=== PATIENT | female | born 1995 | race Caucasian/White ===

== ENCOUNTER 2019-09-05 21:37 | Emergency (ER) | payer OTHER, MEDICAID, SELFPAY ==
[2019-09-05 21:44] VITALS: BP 139/99; PULSE 104; RESP 22; TEMP 36.7; O2SAT 99
[2019-09-05] MEDS: ONDANSETRON 4 MG ODT PREPACK 1 BOTTLE MISC (21:49)
[2019-09-05] MEDS: MAG HYDROX/ALUMINUM/SIMETH SUS 20 ML, LIDOCAINE VISCOUS 2% 15 ML PO (22:07)
[2019-09-05 22:41] VITALS: PULSE 81; RESP 18; O2SAT 99
--- NOTE | 2019-09-06 00:08 | ED_ITS ---
HPI - Nausea/Vomiting/Diarrhea General Chief complaint: Nausea/Vomiting/Diarrhea Stated complaint: vomiting Time Seen by Provider: 09/05/19 21:45 Source: patient Mode of arrival: Ambulatory Limitations: no limitations History of Present Illness HPI Narrative: 24F non smoker with history of UTIs presents with nausea and vomiting after taking a dose of Bactrim this evening after being recently diagnosed with the UTI. She had forgotten to tell her doctor that she had been intolerant of Bactrim once before. She has had a few days of burning, frequency, and urgency and saw here PCP whom diagnosed UTI. She's had no fever, chills, or back pain. She has had N/V as stated, but is not dizzy, weak, or lightheaded. She has no swelling of tongue, lips, or throat and no trouble breathing. She denies any exposure to persons with known or suspected COVID 19. MD complaint: nausea and vomiting Onset (ago): hour(s) Description of Vomiting: food contents Description of Diarrhea: none Associated Abdominal Pain: No Severity: mild Relieving factors: none Exacerbating factors: none Associated symptoms: denies other symptoms Related Data Previous Rx's Medication Instructions Recorded ciprofloxacin HCl 500 mg PO BID 5 Days #10 tab 09/05/19 ondansetron 4 mg PO Q6H PRN #10 tab 09/05/19 nitrofurantoin macrocrystal 50 mg PO QID 7 Days #28 cap 09/06/19 Review of Systems Constitutional Constitutional: Denies chills, Denies fatigue, Denies fever(s), Denies frequent falls, Denies lethargy and Denies weakness Eyes Eyes: Denies change in vision, Denies eye discharge, Denies irritation and Denies loss of vision ENT Ears, Nose, Mouth, and Throat: Denies change in voice, Denies dizziness, Denies neck pain, Denies sore throat and Denies throat swelling Cardiovascular Cardiovascular: Denies chest pain, Denies irregular heart rhythm, Denies lightheadedness, Denies palpitations, Denies dyspnea, Denies dyspnea on exertion and Denies orthopnea Respiratory Respiratory: Denies cough, Denies dyspnea, Denies dyspnea on exertion and Denies wheezing Gastrointestinal Gastrointestinal: Denies abdominal pain, Denies change in bowel habits, Denies diarrhea, Reports nausea and Reports vomiting Genitourinary Genitourinary: Denies hematuria, Denies flank pain, Denies urinary incontinence and Denies urinary urgency Musculoskeletal Musculoskeletal: Denies back pain, Denies muscle weakness, Denies neck pain, Denies numbness and Denies tingling Integumentary/Breasts Skin/Breast: Denies pruritus, Denies erythema, Denies rash and Denies wounds Neurologic Neurologic: Denies behavioral changes, Denies confusion, Denies dizziness, Denies frequent falls, Denies loss of vision, Denies numbness, Denies tingling and Denies weakness Psychiatric Psychiatric: Denies anxiety, Denies behavioral changes, Denies confusion, Denies depression, Denies homicidal ideation and Denies suicidal ideation Endocrine Endocrine: Denies fatigue, Denies flushing and Denies palpitations Hematologic/Lymphatic Hematologic/Lymphatic: Denies easy bruising Allergic/Immunologic Allergic/Immunologic: Denies urticaria, Denies throat swelling and Denies wheezing Patient History Smoking Status: Never smoker Exam Narrative Exam Narrative: GENERAL: [24] year old patient appears stated age. Well- nourished, well-developed patient, in mild distress. Anxious HEAD: Atraumatic. Normocephalic. EYES: Pupils equal round and reactive. Extraocular motions intact. No scleral icterus. No injection or drainage. ENT: Nose without bleeding, purulent drainage. Throat without erythema, tonsillar hypertrophy or exudate. Airway patent. NECK: Trachea midline. Non tender CARDIOVASCULAR: Tachycardic but regular rhythm without murmurs, gallops, or rubs. RESPIRATORY: Clear to auscultation. Breath sounds equal bilaterally. No wheezes, rales, or rhonchi. GASTROINTESTINAL: Abdomen soft, non-tender, nondistended. EXTREMITIES: No edema or joint tenderness. BACK: Nontender without deformity or crepitance. No flank tenderness. NEURO: AOx3. SKIN: No rash or erythema of visible areas Initial Vital Signs Initial Vital Signs: Vital Signs Temperature 98.1 F 09/05/19 21:44 Pulse Rate 104 H 09/05/19 21:44 Respiratory Rate 22 09/05/19 21:44 Blood Pressure 139/99 H 09/05/19 21:44 Pulse Oximetry 99 09/05/19 21:44 Course Course Course Narrative: Patient was initially very anxious and tachycardic, this quickly resolved and her vitals normalized within 10-15 minutes of her arrival Hour urine was rather unremarkable, but patient was able to pull up her medical record from her recent doctor visit and I could verify the presence of UTI Orders Ordered: Discontinued Medications Al Hydrox/Mg Hydrox/Simethicone 20 ml/ Lidocaine HCl 15 ml 0 ml PO NOW ONE Stop: 09/05/19 21:47 Last Admin: 09/05/19 22:07 Dose: 35 ml Documented by: MAZIN Ondansetron HCl (Zofran Odt Prepack) 1 bottle MISC SEEINSTR ONE Stop: 09/05/19 21:47 Last Admin: 09/05/19 21:49 Dose: 1 bottle Documented by: MAZIN Consultations Consultation #1: patient initially stated that she knew she could tolerate Cipro and was given this Rx, but by the time she got home she called back and stated she wasn't so sure about Cipro anymore. We discussed other options and settled on Nitrofurantoin which was electronically transmitted to her pharmacy of choice. Vital Signs Vital signs: Vital Signs - 8 hr 09/05/19 21:44 09/05/19 22:41 Temperature 98.1 F Pulse Rate 104 H 81 Respiratory Rate 22 18 Blood Pressure 139/99 H Pulse Oximetry 99 99 Discharge Plan Departure Patient Disposition: Home Clinical Impression: UTI (urinary tract infection) Qualifiers: Urinary tract infection type: acute cystitis Hematuria presence: without hematuria Qualified Code(s): N30.00 - Acute cystitis without hematuria Vomiting Qualifiers: Vomiting type: unspecified Vomiting Intractability: non-intractable Nausea presence: with nausea Qualified Code(s): R11.2 - Nausea with vomiting, unspecified Discharge Date/Time: 09/05/19 22:41 Instructions: DI for Urinary Tract Infection (UTI), DI for Nausea -- Adult, DI for Vomiting -- Adult Activity Restrictions/Additional Instructions: 1. Drink plenty of fluids with frequent small sips. 2. For the next 24 hours a clear liquid diet is advised. After that please employ a brat diet which would include bananas, rice, apples, toast. 3. Please take medications as directed: STOP TAKING THE BACTRIM. Get your prescriptions filled, they have been electronically transmitted to [facility] at your request. Also, consider over the counter medications such as pepcid or Maalox for your nausea 4. Please follow-up with your doctor in the next 1-2 days. Call the office for an appointment. 5. Please return to the emergency Department for any worsening or persistent symptoms, such as increasing pain or fever. Prescriptions: New ciprofloxacin HCl 500 mg tablet 500 mg PO BID 5 Days Qty: 10 RF: 0 ondansetron 4 mg tablet,disintegrating 4 mg PO Q6H PRN (Reason: nausea and vomiting) Qty: 10 RF: 0 nitrofurantoin macrocrystal 50 mg capsule 50 mg PO QID 7 Days Qty: 28 RF: 0
== END 2019-09-05 22:41 | disposition home or self-care (01) ==
PROVIDERS: Emergency Provider Emergency Medicine
DX: N30.00 Acute cystitis without hematuria (principal); R11.2 Nausea with vomiting, unspecified
CPT/HCPCS: 99283

== ENCOUNTER → 2023-01-18 16:16 | Outpatient (CLI) | payer BC, SELFPAY | PROVIDERS: PCP Family Medicine; Visit Provider Family Medicine | DX: N89.8 Other specified noninflammatory disorders of vagina (principal) | CPT/HCPCS: 87210 ==

== ENCOUNTER → 2023-09-06 17:14 | Outpatient (CLI) | payer BC, SELFPAY ==
[2023-09-06 17:37] LABS: Add Manual Diff / Slide Review NO; Basophils Absolute Auto 0 /uL (0-100); Basophils Percent Auto 0.6 % (0-2); Eosinophils Absolute Auto 100 /uL (0-450); Eosinophils Percent Auto 1.9 % (2-4); Hematocrit 37.9 % (36-46); Hemoglobin 12.6 g/dL (12.0-16.0); Lymphocytes Absolute Auto 1700 /uL (1100-4500); Lymphocytes Percent Auto 23.3 % (25-40); Mean Corpuscular HGB Conc 33.2 % (30-36); Mean Corpuscular Hemoglobin 30.5 PG (26-34); Mean Corpuscular Volume 91.9 fL (80-100); Monocytes Absolute Auto 500 /uL (0-900); Neutrophils Absolute Auto 5000 /uL (1500-7000); Neutrophils Percent Auto 67.2 % (50-75); Platelet Count 235 X10^3/uL (150-400); Red Blood Cell Count 4.13 X10^6/uL (4.0-5.2); Red Cell Distribution Width 14.2 % (11.6-14.8); White Blood Cell Count 7.5 X10^3/uL (4.5-11.0)
[2023-09-06 17:41] LABS: Appearance Urine UA CLEAR; Bilirubin Urine UA NEGATIVE (NEGATIVE); Color Urine UA YELLOW; Glucose Urine UA NEGATIVE (Negative); Ketones Urine UA NEGATIVE (NEGATIVE); Leukocyte Esterase Urine UA 1+ (NEGATIVE); Nitrite Urine UA NEGATIVE (Negative); Occult Blood Urine UA TRACE-INTACT (Negative); Protein Urine UA NEGATIVE (Negative); Specific Gravity Urine UA 1.015 (1.000-1.035); Urobilinogen Urine UA 0.2 E.U./dL (0.2)
[2023-09-06 17:58] LABS: Alanine Aminotransferase 55 IU/L (<35); Albumin 4.8 g/dL (3.5-5.0); Albumin Globulin Ratio 1.6 (1.0-2.8); Alkaline Phosphatase 75 U/L (38-126); Aspartate Aminotransferase 41 IU/L (14-36); BUN Creatinine Ratio 18.5 (6-22); Bilirubin Total 0.5 mg/dL (0.2-1.3); Blood Urea Nitrogen 15 mg/dL (7-17); Calcium 8.9 mg/dL (8.4-10.2); Carbon Dioxide 29 mmol/L (22-32); Chloride 106 mmol/L (98-107); Estimated Glomerular Filt Rate > 60 mL/min (>60); Glucose 95 mg/dL (70-100); HEMOLYSIS < 15 (0-50); Potassium 3.9 mmol/L (3.4-5.1); Sodium 140 mmol/L (137-145); Total Protein 7.8 g/dL (6.3-8.2)
[2023-09-06 18:32] LABS: TSH w/ Reflex to FT4 0.42 uIU/mL (0.47-4.68)
[2023-09-06 18:33] LABS: Hepatitis B Surface Antigen NEGATIVE s/c (NEGATIVE)
[2023-09-06 18:47] LABS: Vitamin B12 872 pg/mL (239-931)
[2023-09-06 18:53] LABS: HIV 1 & 2 Ab/Ag 4th Gen Combo NEGATIVE (NEGATIVE); Hep C Virus Ab w/Reflex Quant NEGATIVE s/c (NEGATIVE)
[2023-09-06 18:58] LABS: Free T4, Direct Thyroxine 1.42 ng/dL (0.78-2.19)
[2023-09-06 19:02] LABS: Bacteria Urine Few (2-10); RBC Urine 1-5/HPF (0-5/HPF); Squamous Epithelial Cell Urine 1-5 /HPF (0-5/HPF); Urine Volume 10mL (spun); WBC Urine 10-30/HPF (0-5/HPF); White Blood Cell Casts Urine 1-5/LPF
[2023-09-06 19:03] LABS: Culture Indicated Urine Cult Not Indicated
[2023-09-06 19:06] LABS: Urine N gonorrhoeae NOT DETECTED
[2023-09-06 19:35] LABS: Urine Chlamydia NOT DETECTED
== END ==
PROVIDERS: PCP Family Medicine; Referring Provider Family Medicine; Visit Provider Family Medicine
DX: R53.82 Chronic fatigue, unspecified (principal); E28.2 Polycystic ovarian syndrome; R30.0 Dysuria; Z72.51 High risk heterosexual behavior
CPT/HCPCS: 36415; 80053; 81001; 82607; 84439; 84443; 85025; 86592; 86803; 87340; 87389; 87491; 87591

== ENCOUNTER → 2023-09-07 14:09 | Outpatient (CLI) | payer BC, SELFPAY | PROVIDERS: PCP Family Medicine; Visit Provider Family Medicine | DX: R30.0 Dysuria (principal) | CPT/HCPCS: 87077; 87086; 87186 ==

== ENCOUNTER → 2023-12-20 12:09 | Outpatient (CLI) | payer BC, SELFPAY ==
[2023-12-20 12:49] LABS: Add Manual Diff / Slide Review NO; Basophils Absolute Auto 0 /uL (0-100); Basophils Percent Auto 0.2 % (0-2); Eosinophils Absolute Auto 100 /uL (0-450); Eosinophils Percent Auto 0.9 % (2-4); Hematocrit 37.1 % (36-46); Hemoglobin 12.4 g/dL (12.0-16.0); Lymphocytes Absolute Auto 1600 /uL (1100-4500); Lymphocytes Percent Auto 18.8 % (25-40); Mean Corpuscular HGB Conc 33.5 % (30-36); Mean Corpuscular Hemoglobin 30.8 PG (26-34); Mean Corpuscular Volume 91.8 fL (80-100); Monocytes Absolute Auto 500 /uL (0-900); Monocytes Percent Auto 5.8 % (3-14); Neutrophils Absolute Auto 6200 /uL (1500-7000); Neutrophils Percent Auto 74.3 % (50-75); Platelet Count 191 X10^3/uL (150-400); Red Blood Cell Count 4.04 X10^6/uL (4.0-5.2); Red Cell Distribution Width 14.3 % (11.6-14.8); White Blood Cell Count 8.4 X10^3/uL (4.5-11.0)
[2023-12-20 12:56] LABS: Appearance Urine UA CLEAR; Bilirubin Urine UA NEGATIVE (NEGATIVE); Color Urine UA YELLOW; Glucose Urine UA NEGATIVE (Negative); Ketones Urine UA NEGATIVE (NEGATIVE); Leukocyte Esterase Urine UA NEGATIVE (NEGATIVE); Nitrite Urine UA NEGATIVE (Negative); Occult Blood Urine UA NEGATIVE (Negative); Protein Urine UA NEGATIVE (Negative); Specific Gravity Urine UA 1.015 (1.000-1.035)
[2023-12-20 12:58] LABS: pH Urine UA 7.5 (4.5-8.0)
[2023-12-20 13:21] LABS: Natera Collection Specimen Collected
[2023-12-20 13:48] LABS: Hemoglobin A1C% w Est Avg Glu 4.9 % (4.0-6.0)
[2023-12-20 17:06] LABS: Urine Chlamydia NOT DETECTED; Urine N gonorrhoeae NOT DETECTED
[2023-12-20 21:41] LABS: Hepatitis B Surface Antigen NEGATIVE s/c (NEGATIVE); Rubella Antibody IgG 10.3 IU/mL (>15)
[2023-12-20 21:59] LABS: HIV 1 & 2 Ab/Ag 4th Gen Combo NEGATIVE (NEGATIVE); Hep C Virus Ab w/Reflex Quant NEGATIVE s/c (NEGATIVE)
[2023-12-21 07:10] LABS: RPR Screen Non Reactive (Non Reactive)
== END ==
PROVIDERS: PCP Family Medicine; Referring Provider Family Medicine; Visit Provider Family Medicine
DX: O99.341 Other mental disorders complicating pregnancy, first trimester (principal); E28.2 Polycystic ovarian syndrome
CPT/HCPCS: 36415; 80055; 81003; 83036; 86787; 86803; 86850; 86900; 86901; 87086; 87389; 87491; 87591